=== PATIENT | male | born 1990 | race Caucasian/White ===

== ENCOUNTER 2016-09-26 04:24 | Emergency (ER) | payer BC, OTHER ==
[2016-09-26] MEDS ORDERED: Sodium Chloride 0.9% 1,000 ML PRIMARY IV ONE (04:34)
[2016-09-26] MEDS ORDERED: KETOROLAC 30 MG/1 ML VIAL IVP ONE (04:34)
[2016-09-26] MEDS ORDERED: ONDANSETRON 4 MG/2 ML VIAL IVP ONE ×2 (04:34→05:35)
[2016-09-26] MEDS ORDERED: TAMSULOSIN 0.4 MG CAPSULE PO ONE (04:35)
[2016-09-26 04:42] LABS: HEMATOCRIT 43.4 % (42.0-52.0); MEAN CORPUSCULAR HEMOGLOBIN 29.9 PG (27-31); MEAN CORPUSCULAR HGB CONC 34.6 g/dL (33-37); MEAN PLATELET VOLUME 10.3 FL (7.4-12.2); RDW COEFFICIENT OF VARIATION 12.5 % (11.5-14.5); RED BLOOD COUNT 5.01 10^6/uL (4.70-6.10); WHITE BLOOD COUNT 6.6 10^3/uL (4.8-10.8)
--- NOTE | 2016-09-26 04:43 | PDOC ---
Male Genitourinary Problem HPI - General Chief Complaint: Genitourinary Complaint Stated Complaint: Right Flank Pain Date Seen by Provider: 09/26/16 Time Seen by Provider: 04:30 Source: POSITIVE: Patient, Spouse Exam Limitations: POSITIVE: No limitations Nurse's Notes Reviewed & Considered: Yes - History of Present Illness Initial Comments: Patient with right flank pain. Symptoms began over 0300 this morning which awoke him from sleep. He describes his pain as sharp, stabbing, in the right flank and costovertebral angle. He had an episode of vomiting on the way to the emergency room this morning. He denies any fever but does have chills denies sweats, denies any headache, blurred vision, chest pain, shortness, cough , he was able to urinate this morning but only a small amount, there is no dysuria no hematuria appreciated. Body Location Affected: REPORTS: Abdomen, Back Timing: REPORTS: Abrupt Duration: 1-3 hours Severity: Severe Quality: REPORTS: "Pain", Sharpness, Stabbing, Throbbing Context: REPORTS: Other (please comment) (The patient was sleeping when pain began.) Sexual History: REPORTS: Non-Contributory Associated Symptoms: REPORTS: Problems Urinating, Hesitancy, Small Amounts, Abdominal Pain Similar Symptoms Previously: No Recent Care Received: REPORTS: Denies Any Prior Injuries Related to Current Complaint?: No - Patient Home Medications Home Medications: Home Medications NK [No Home Medications Reported] 09/26/16 - Patient Allergies Allergies/Adverse Reactions: Allergies Allergy/AdvReac Type Severity Reaction Status Date / Time No Known Allergies Allergy Verified 09/26/16 04:34 ROS - Limitations ROS Limitations: No Limitations Constitution: REPORTS: Chills Cardiovascular: REPORTS: Denies Cardiac Symptoms Respiratory: REPORTS: Denies Resp Symptoms Neurological: REPORTS: Denies Neuro Symptoms Gastrointestinal: REPORTS: Abdominal Pain, Nausea, Vomitting Endocrine: REPORTS: Denies Symptoms Musculoskeletal: REPORTS: Back Pain Genitourinary: REPORTS: Difficulty Urinating Eyes: REPORTS: Denies Symptoms ENT: REPORTS: Denies Symptoms Skin: REPORTS: Denies Skin Symptoms Lympathic: REPORTS: Denies Lympathic Symptoms Immunologic: POSITIVE: Denies Symptoms Psychiatric: POSITIVE: Denies Psych Symptoms Male Genitourinary Exam - General Appearance General Appearance: POSITIVE: Alert, Cooperative, No Evidence of Trauma, Moderate Distress - Abdomen Abdomen: Soft: (All Quadrants), Normal Bowel Sounds: (All Quadrants), Denies Tenderness: (RUQ), (LUQ), (LLQ), Tenderness Noted: (RLQ) - HEENT HEENT: POSITIVE: Head Inspection Nml, Eyes Inspection Nml, Ears Inspection Nml, Nose Inspection Nml, PERRL, EOMI - Neck Neck: POSITIVE: Normal Inspection, No Apparent Injury - Respiratory Respiratory: POSITIVE: No Respiratory Distress, Breath Sounds Normal, Chest Non- Tender - Cardiovascular Cardiovascular: POSITIVE: Regular Rate and Rhythm, Heart Sounds Normal - Back Back: POSITIVE: CVA Tenderness (R) - Extremities Extremity: Non-Tender: (All Extremities), Normal ROM: (All Extremities), Normal Inspection: (All Extremities) - Neurological / Psychological Neurological: POSITIVE: Affect Apporpriate, Oriented X3 - Skin Skin: POSITIVE: Intact, Normal For Race, Warm, Dry, No Rash Male Genitourinary Progress - Results Reviewed by me Xrays/CTs/US Reviewed by me: Yes Discussed with Radiologist: Yes Lab Results Reviewed: Yes Lab Results: Laboratory Results 09/26/16 Range/Units 04:41 WBC 6.60 (4.8-10.8) 10^3/uL RBC 5.01 (4.70-6.10) 10^6/uL Hgb 15.0 (14.0-18.0) g/dL Hct 43.4 (42.0-52.0) % MCV 86.6 (80-90) FL MCH 29.9 (27-31) PG MCHC 34.6 (33-37) g/dL RDW Std Deviation 38.7 L (39-50) fL RDW Coeff of Lisa 12.5 (11.5-14.5) % Plt Count 247 (140-350) 10*3/uL MPV 10.3 (7.4-12.2) FL Sodium 145 (135-145) meq/L Potassium 3.7 L (3.8-5.2) meq/L Chloride 106 (98-112) meq/L Carbon Dioxide 23 (23-33) meq/L Anion Gap 16 (5-20) BUN 17 (7-22) mg/dL Creatinine 1.1 (0.70-1.50) mg/dL Estimated GFR > 60 (>60 ml/min/1.73m(2)) BUN/Creatinine Ratio 15.45 (6-20) Glucose 110 (78-110) mg/dL Calculated Osmolality 302.0 H (267-292) mOsm/kg Calcium 9.5 (8.7-10.7) mg/dL Total Bilirubin 1.0 (0.3-1.2) mg/dL AST 26 (21-57) IU/L ALT 40 (21-72) IU/L Alkaline Phosphatase 76 (38-126) IU/L Total Protein 8.0 (6.1-8.0) g/dL Albumin 4.7 (3.5-4.8) g/dL Globulin 3.2 (2.50-4.10) g/dL Albumin/Globulin Ratio 1.40 (1.3-2.0) mg/g Ur Collection Type Clean catch urine Urine Color Yellow Urine Clarity Clear (CLEAR) Urine pH 6.5 (5.0-8.5) Ur Specific [place] 1.025 (1.005-1.030) Urine Protein Trace (NEG) mg/dl Urine Glucose (UA) Negative (NEG) mg/dL Urine Ketones Negative (NEG) Urine Occult Blood Small H (NEG) Urine Nitrate Negative (NEG) Urine Bilirubin Negative (NEG) Urine Urobilinogen 1.0 (0.2) EU/dL Ur Leukocyte Esterase Negative (NEG) Urine RBC 5-8 (NONE) /hpf Urine WBC 0-1 (NONE) Ur Squamous Epith Cells Rare (NONE) Ur Renal Epithelial Cell None (NONE) Urine Crystals None Urine Bacteria Rare (NONE) Urine Casts None (NONE) Urine Mucus Many (NONE) Urine Trichomonas None (NONE) Urine Yeast None (NONE) Ur Culture Indicated? Culture not set - Patient's Progress Pain Medication Addressed: POSITIVE: Yes Re-Examine Time:: 06:26 Status: POSITIVE: Improved MDM / ED Course: Patient had an IV started, blood drawn and sent to the lab for studies, CT scan obtained, and was examined. He received IV Toradol, Zofran, morphine, and normal saline. His pain initially improved then came back and he had his second dose of morphine. Laboratory findings reveal blood in the urine and no bacteria. CBC is unremarkable, cooperative metabolic panel is unremarkable. CT scan shows a 3 mm UVJ stone with mild hydroureter and hydronephrosis present. Assessment: Right renal calculus with mild hydroureter and hydronephrosis. Plan: Discharge home, [place] prescribed, Zofran prescribed, and Flomax prescribed. Follow up with urology. Return to the emergency room if increasing pain, fever, or other concerns. - Consult Counseled: POSITIVE: Patient, Family, RE: Lab Results, RE: Radiology Results, RE : DX, RE: Need for F/U Patient Care Time - Estimated PCT Patient Care Time (In Minutes): 45 Vital Signs - Recent Vital Signs Vital Signs: Vital Signs (Last 8 hours) Temp Pulse Resp BP Pulse Ox 09/26/16 04:24 97.2 F 72 22 157/108 98 - VS Reviewed Vital Signs Reviewed: Yes Discharge Clinical Impression: Renal colic Discharge Disposition: Discharged to Home Condition: Stable Patient Instructions Given at Discharge: Kidney Stones (ED)
[2016-09-26 04:44] LABS: BILIRUBIN,URINE NEGATIVE (NEG); CLARITY,URINE CLEAR (CLEAR); GLUCOSE, URINE (UA) NEGATIVE (NEG); LEUKOCYTE ESTERASE ,URINE NEGATIVE (NEG); NITRATE,URINE NEGATIVE (NEG); OCCULT BLOOD,URINE SMALL (NEG); PH,URINE 6.5 (5.0-8.5); PROTEIN,URINE TRACE mg/dl (NEG)
[2016-09-26 04:49] LABS: ASPARTATE AMINO TRANSFERASE 26 IU/L (21-57); BACTERIA,URINE RARE; BLOOD UREA NITROGEN 17 mg/dL (7-22); BUN/CREATININE RATIO 15.45 (6-20); CALCIUM 9.5 mg/dL (8.7-10.7); CHLORIDE 106 meq/L (98-112); CREATININE 1.1 mg/dL (0.70-1.50); EST GLOMERULAR FILTRATION > 60 (>60 ml/min/1.73m(2)); GLUCOSE 110 mg/dL (78-110); POTASSIUM 3.7 meq/L (3.8-5.2); SODIUM 145 meq/L (135-145); SQUAMOUS EPITHELIAL CELL,UR RARE; URINE SAMPLE TYPE CLEAN CATCH URINE; WBC,URINE 0-1
[2016-09-26] MEDS ORDERED: MORPHINE SULFATE 4 MG/1 ML IVP ONE ×2 (04:52→05:35)
[2016-09-26 04:57] VITALS: RESP 22; TEMP 97.2
--- NOTE | 2016-09-26 06:02 | DI ---
HISTORY: Right-sided pain. No history of stones. TECHNIQUE: Contiguous axial images of the abdomen and pelvis were obtained and submitted for interpr etation. FINDINGS: There is a 3 mm stone in the right ureterovesical junction with mild hydroureter and hydro nephrosis. There is no perinephric fluid collection. A punctate nonobstructive nephrolith is noted in the lower pole of the right kidney. Normal CT appearance of the liver, gallbladder, pancreas, splee n, left kidney, and adrenal glands. Hollow viscus organs demonstrate normal course and caliber. The appendix is within normal limits. Th ere is no intraperitoneal free air or fluid. Vascular structures are intact. No abdominopelvic lymp hadenopathy is present. There is no inguinal or umbilical hernia. The lung bases are clear. Osseous structures are within normal limits for age. IMPRESSION: 1. Mild right-sided hydroureter and hydronephrosis with a 3 mm stone in the right ureterovesical [place] ction.
[2016-09-26] MEDS ORDERED: HYDROcodone-APAP 5 MG -325 MG TABLET PO ONE (06:26)
== END 2016-09-26 06:51 | disposition home or self-care (01) ==
LOC: ER 04:24
DX: N23 Unspecified renal colic (principal); M54.5 Low back pain; R10.11 Right upper quadrant pain
CPT/HCPCS: 74176; 80053; 81001; 81003; 85027; 96361; 96374; 96375; 96376; 99283 ×2; J1885; J2270; J2405; J7030